=== PATIENT | female | born 1985 | race African-American/Black ===

== ENCOUNTER 2018-03-09 17:16 | Emergency (ER) | payer MEDICAID ==
[~2018-03-09] VITALS: Ht 160 cm; Wt 61.0 kg
[2018-03-09] MEDS ORDERED: KETOROLAC 15MG/ML VIAL IM ONE (19:45)
[2018-03-09 21:20] VITALS: BP 124/71
== END 2018-03-09 21:29 | disposition home or self-care (01) ==
LOC: ER 17:16
DX: M25.512 Pain in left shoulder (principal); F11.10 Opioid abuse, uncomplicated; V49.49XA Driver injured in collision with other motor vehicles in traffic accident, initial encounter; Y93.89 Activity, other specified; Y92.89 Other specified places as the place of occurrence of the external cause; Y99.8 Other external cause status
CPT/HCPCS: 71045; 96372; 99283; J1885